=== PATIENT | female | born 1970 | race Caucasian/White ===

== ENCOUNTER 2024-04-17 06:17 | Day surgery (SDC) | payer OTHER, SELFPAY ==
[2024-04-12 11:04] LABS: Hematocrit 42.3 % (37.0-47.0); Mean Corp Hgb Conc. 33.1 g/dL (33.0-37.0); Mean Corpuscular Hgb 28.5 pg (27.0-31.0); Mean Platelet Volume 11.1 fL (7.4-10.4); Platelet Count 215 10^3/uL (130-400); Red Blood Cell Count 4.92 10^6/uL (4.20-5.40); Red Cell Dist. Width 12.6 % (11.5-14.5); White Blood Cell Count 5.1 10^3/uL (4.8-10.8)
[2024-04-12 12:17] LABS: Blood Urea Nitrogen 24 mg/dl (7-17); Calcium 9.8 mg/dl (8.4-10.2); Carbon Dioxide 28 mmol/L (22-30); Chloride 97 mmol/L (98-107); Glucose 157 mg/dl (70-99); Potassium 3.4 mmol/L (3.5-5.1); Sodium 136 mmol/L (135-145); eGFR > 60.00
--- NOTE | 2024-04-12 12:50 | PTCARENOTE ---
Patients 04/12 potassium 3.4- Josee @ Dr. Smith office notified
[2024-04-12 13:13] VITALS: BMI 30.9
--- NOTE | 2024-04-15 13:22 | PTCARENOTE ---
Dr. Tolbert made aware of K 3.4, no further action requested.
[2024-04-17] VITALS (9 sets, daily range): BP systolic 123–149; BP diastolic 68–93; BMI 30.9
[2024-04-17 07:26] LABS: Glucose - Point of Care 118 mg/dl (70-99)
[2024-04-17] MEDS: NORMOSOL-R/PLASMALYTE-A 1000 IV (07:27)
[2024-04-17] MEDS: DEMEROL 12.5 MG IV ×2 (09:19→09:30)
[2024-04-17] MEDS: Pyridium 200 MG PO (09:40)
[2024-04-17 09:47] LABS: Glucose - Point of Care 109 mg/dl (70-99)
== END 2024-04-17 10:40 | disposition home or self-care (01) ==
LOC: SDS 06:17
PROVIDERS: ATTENDING PHYSICIAN Specialist; FAMILY PHYSICIAN Physician Assistant
DX: N20.2 Calculus of kidney with calculus of ureter (principal)
CPT/HCPCS: 52356; 36415; 74018; 76000; 80048; 82962; 85027; 93005; C1894; C2617